=== PATIENT | male | born 1990 | race American Indian/Alaskan Native ===

== ENCOUNTER 2018-07-31 20:02 | Emergency (ER) | payer MEDICARE, MEDICAID ==
--- NOTE | 2018-07-31 21:16 | Emergency Department Report ---
Blank Doc - Documentation Documentation: This is a 27-year-old male that presents with dizziness. Patient denies any h eadaches or any other symptoms. This initial assessment/diagnostic orders/clinical plan/treatment(s) is/are subject to change based on patient's health status, clinical progression and re- assessment by fellow clinical providers in the ED. Further treatment and workup at subsequent clinical providers discretion. Patient/guardians urged not to elope from the ED as their condition may be serious if not clinically assessed and managed. Initial orders include: 1- Patient sent to [facility] for further evaluation and treatment 2- labs 3- orthostatic vitals
[2018-07-31 21:52] LABS: Basophils # (Auto) 0.1 K/mm3 (0.0-0.1); Eosinophils # (Auto) 0.1 K/mm3 (0.0-0.4); Eosinophils % (Auto) 2.2 % (0.0-4.3); Hematocrit 45.4 % (35.5-45.6); Hemoglobin 15.5 gm/dl (11.8-15.2); Lymphocytes # (Auto) 2.3 K/mm3 (1.2-5.4); Lymphocytes % (Auto) 47.6 % (13.4-35.0); Mean Corpuscular HGB Conc 34 % (32-34); Mean Corpuscular Volume 81 fl (84-94); Monocytes # (Auto) 0.4 K/mm3 (0.0-0.8); Platelet Count 288 K/mm3 (140-440); Red Blood Count 5.58 M/mm3 (3.65-5.03); Red Cell Distribution Width 13.8 % (13.2-15.2)
[2018-07-31 21:58] LABS: BUN/Creatinine Ratio 15; Blood Urea Nitrogen 9 mg/dL (9-20); Calcium 9.7 mg/dL (8.4-10.2); Hemolysis Index 10
--- NOTE | 2018-08-01 01:16 | Cat Scan Report ---
PROCEDURE: CT HEAD/BRAIN WO CON TECHNIQUE: Computerized tomography of the head was performed without contrast material. CT DOSE LENGTH PRODUCT: mGycm HISTORY: dizziness COMPARISONS: None . FINDINGS: Skull and scalp: Normal . Paranasal sinuses: Normal . Ventricles and subarachnoid spaces: Normal . Cerebrum: No evidence of hemorrhage, acute infarction or mass . Cerebellum and brainstem: No evidence of hemorrhage, acute infarction or mass . Vasculature: Normal . Other: None . ASPECTS: 10 IMPRESSION: Normal Examination . This document is electronically signed by Sagar Kraft MD., August 01 2018 02:14:41 AM ET
[2018-08-01 01:34] LABS: Free T4 (Free Thyroxine) 1.24 ng/dL (0.76-1.46)
--- NOTE | 2018-08-01 02:07 | Emergency Department Report ---
ED General Adult HPI - General Chief complaint: Dizziness Stated complaint: DIZZY Time Seen by Provider: 07/31/18 21:14 Source: patient Mode of arrival: Ambulatory Limitations: No Limitations - History of Present Illness Initial comments: Patient is a 27-year-old, male with no past medical history except hypertension presents to ED with complaint of acute onset persistent intermittent dizziness and lightheadedness with headache for the last 3 days, worse in the last 12 hours. Patient states that the symptoms are intermittent and does not remember anything that triggers it. Patient denies chest pain, nausea, vomiting, change in mentation, diaphoresis, abdominal pain, ear pain, nasal and sinus congestion, fever, chills, diarrhea, change in vision or neck pain. MD Complaint: dizziness, headache -: Sudden, days(s) (3) Location: head Radiation: non-radiation Severity scale (0 -10): 4 Quality: aching, dull Consistency: constant Improves with: none Worsens with: none Associated Symptoms: headaches. denies: confusion, chest pain, cough, diaphoresis, fever/chills, loss of appetite, malaise, nausea/vomiting, rash, shortness of breath, syncope, other Treatments Prior to Arrival: none - Related Data Previous Rx's Medication Instructions Recorded Last Taken Type Ibuprofen [Motrin] 800 mg PO Q8HR PRN #20 tablet 08/01/18 Unknown Rx Meclizine [Antivert] 25 mg PO TID PRN #30 tablet 08/01/18 Unknown Rx Allergies Allergy/AdvReac Type Severity Reaction Status Date / Time No Known Allergies Allergy Unverified 07/31/18 20:32 ED Review of Systems ROS: Stated complaint: DIZZY Other details as noted in HPI Comment: All other systems reviewed and negative Constitutional: no symptoms reported, see HPI. denies: chills, diaphoresis, fever, malaise Eyes: as per HPI. denies: eye pain, eye discharge, vision change ENT: as per HPI. denies: ear pain, throat pain, dental pain, hearing loss, epistaxis Respiratory: no symptoms reported, see HPI. denies: cough, orthopnea, shortness of breath, SOB with exertion, SOB at rest Cardiovascular: as per HPI. denies: chest pain, palpitations, dyspnea on exertion, edema, syncope, paroxysmal nocturnal dyspnea Endocrine: no symptoms reported, see HPI. denies: excessive sweating, flushing, intolerance to cold, intolerance to heat, increased hunger, increased thirst, unexplained weight gain, unexplained weight loss Gastrointestinal: as per HPI. denies: abdominal pain, nausea, vomiting, diarrhea, constipation, hematemesis, melena, hematochezia Genitourinary: as per HPI. denies: urgency, dysuria, frequency, hematuria, discharge, testicular pain, testicular mass Musculoskeletal: as per HPI. denies: back pain, joint swelling, arthralgia Skin: as per HPI. denies: rash, lesions, change in color Neurological: as per HPI, headache. denies: weakness, numbness, paresthesias, confusion, abnormal gait, vertigo Psychiatric: as per HPI. denies: auditory hallucinations, visual hallucinations, homicidal thoughts Hematological/Lymphatic: as per HPI ED Past Medical Hx - Past Medical History Hx Hypertension: Yes Additional medical history: bells palsy - Social History Smoking Status: Never Smoker Substance Use Type: None - Medications Home Medications: Home Medications Medication Instructions Recorded Confirmed Last Taken Type Ibuprofen [Motrin] 800 mg PO Q8HR PRN #20 tablet 08/01/18 Unknown Rx Meclizine [Antivert] 25 mg PO TID PRN #30 tablet 08/01/18 Unknown Rx ED Physical Exam - General Limitations: No Limitations General appearance: alert, in no apparent distress - Head Head exam: Present: atraumatic, normocephalic, normal inspection - Eye Eye exam: Present: normal appearance, PERRL, EOMI. Absent: scleral icterus, conjunctival injection, nystagmus, periorbital swelling, periorbital tenderness Pupils: Present: normal accommodation - ENT ENT exam: Present: normal exam, normal orophraynx, mucous membranes moist, TM's normal bilaterally, normal external ear exam - Neck Neck exam: Present: normal inspection, full ROM. Absent: tenderness, mening ismus, lymphadenopathy, thyromegaly - Respiratory Respiratory exam: Present: normal lung sounds bilaterally. Absent: respiratory distress, wheezes, rhonchi, stridor, chest wall tenderness, accessory muscle use, decreased breath sounds - Cardiovascular Cardiovascular Exam: Present: regular rate, normal rhythm, normal heart sounds - GI/Abdominal GI/Abdominal exam: Present: soft, normal bowel sounds. Absent: distended, guarding, rebound, hyperactive bowel sounds, hypoactive bowel sounds, organomegaly, mass, pulsatile mass - Rectal Rectal exam: Present: deferred - Extremities Exam Extremities exam: Present: normal inspection, full ROM, normal capillary refill - Back Exam Back exam: Present: normal inspection, full ROM. Absent: tenderness, CVA tenderness (R), CVA tenderness (L), muscle spasm, vertebral tenderness - Neurological Exam Neurological exam: Present: alert, oriented X3, CN II-XII intact, normal gait, reflexes normal - Psychiatric Psychiatric exam: Present: normal affect, anxious - Skin Skin exam: Present: warm, dry, intact, normal color. Absent: cyanosis, erythema, urticaria ED Course Vital Signs 07/31/18 07/31/18 20:23 21:15 Temperature 98.3 F 98.3 F Pulse Rate 85 85 Respiratory 18 18 Rate Blood Pressure 154/101 154/101 O2 Sat by Pulse 99 98 Oximetry - Reevaluation(s) Reevaluation #1: 08/01/18 02:11 Patient is alert and oriented 3 and is not in distress. Patient was treated in the ED for dizziness with meclizine. Head CT scan without contrast shows no acute intracranial abnormalities or hemorrhage. Lab test results were reviewed and are all unremarkable. On reevaluation, patient has not had any dizzy spells while in the ED especially after being treated with medication in the ED. Chuy nunez discharged home on medications and advised to follow-up with his primary care physician in 3-5 days for reevaluation or return to the ED immediately if symptoms get worse. ED Medical Decision Making - Lab Data Result diagrams: 07/31/18 21:22 07/31/18 21:22 - Radiology Data Radiology results: report reviewed, image reviewed No acute intracranial abnormalities - Medical Decision Making Patient is alert and oriented 3 and is not in distress. Patient was treated in the ED for dizziness with meclizine. Head CT scan without contrast shows no acute intracranial abnormalities or hemorrhage. Lab test results were reviewed and are all unremarkable. On reevaluation, patient has not had any dizzy spells while in the ED especially after being treated with medication in the ED. Patient discharged home on medications and advised to follow-up with his primary care physician in 3-5 days for reevaluation or return to the ED immediately if symptoms get worse. - Differential Diagnosis dizziness, headache, viral illness Critical care attestation.: If time is entered above; I have spent that time in minutes in the direct care of this critically ill patient, excluding procedure time. ED Disposition Clinical Impression: Dizzinesses Disposition: - TO HOME OR SELFCARE Is pt being admited?: No Does the pt Need Aspirin: No Condition: Stable Instructions: Dizziness (ED) Additional Instructions: Take medications as needed, drink plenty of fluids and follow up with your primary care physician in 7-10 days for reevaluation. Return to the ED immediately if symptoms get worse. Prescriptions: Meclizine [Antivert] 25 mg PO TID PRN #30 tablet PRN Reason: Vertigo Ibuprofen [Motrin] 800 mg PO Q8HR PRN #20 tablet PRN Reason: Pain , Severe (7-10) Referrals: YOKASTA DAVE MD [Primary Care Provider] - 3-5 Days Time of Disposition: 01:59 Print Language: PERSIAN
[2018-08-01 02:14] VITALS: BP 142/90
== END 2018-08-01 02:12 | disposition home or self-care (01) ==
LOC: ED 20:02
DX: R42 Dizziness and giddiness (principal); I10 Essential (primary) hypertension
CPT/HCPCS: 36415; 70450; 80048; 84439; 84443; 84484; 85025; 99284

== ENCOUNTER 2018-08-08 10:59 | Emergency (ER) | payer MEDICARE, MEDICAID ==
[2018-08-08 11:09] VITALS: BP 148/91
--- NOTE | 2018-08-08 12:23 | Emergency Department Report ---
ED General Adult HPI - General Chief complaint: Dizziness Stated complaint: DIZZY/HEAD PRESSURE Time Seen by Provider: 08/08/18 11:58 Source: patient Mode of arrival: Ambulatory Limitations: No Limitations - History of Present Illness Initial comments: Patient is a 27-year-old [place] male who is presenting with right sided headache is been present for approximately 2 weeks. Patient states this aching throbbing sensation on the right side of his head. Patient states sometimes it feels as though there is a balloon in his head that is expanding. He denies any light sensitivity and nausea vomiting fevers chills Or stiffness or sore throat this time. Patient was here approximately week ago and was given a prescription for Motrin which he states did not help his headache. - Related Data Previous Rx's Medication Instructions Recorded Last Taken Type Ibuprofen [Motrin] 800 mg PO Q8HR PRN #20 tablet 08/01/18 Unknown Rx Meclizine [Antivert] 25 mg PO TID PRN #30 tablet 08/01/18 Unknown Rx Ketorolac [Toradol] 10 mg PO Q6H PRN #12 tablet 08/08/18 Unknown Rx Meclizine [Antivert] 25 mg PO TID PRN #10 tablet 08/08/18 Unknown Rx Allergies Allergy/AdvReac Type Severity Reaction Status Date / Time No Known Allergies Allergy Verified 08/08/18 11:02 ED Review of Systems ROS: Stated complaint: DIZZY/HEAD PRESSURE Other details as noted in HPI Comment: All other systems reviewed and negative ED Past Medical Hx - Past Medical History Previous Medical History?: Yes Hx Hypertension: Yes Additional medical history: bells palsy - Surgical History Past Surgical History?: No - Social History Smoking Status: Never Smoker - Medications Home Medications: Home Medications Medication Instructions Recorded Confirmed Last Taken Type Ibuprofen [Motrin] 800 mg PO Q8HR PRN #20 tablet 08/01/18 Unknown Rx Meclizine [Antivert] 25 mg PO TID PRN #30 tablet 08/01/18 Unknown Rx Ketorolac [Toradol] 10 mg PO Q6H PRN #12 tablet 08/08/18 Unknown Rx Meclizine [Antivert] 25 mg PO TID PRN #10 tablet 08/08/18 Unknown Rx ED Physical Exam - General Limitations: No Limitations General appearance: alert, in no apparent distress - Head Head exam: Present: atraumatic, normocephalic - Eye Eye exam: Present: normal appearance - ENT ENT exam: Present: mucous membranes moist - Neck Neck exam: Present: normal inspection - Respiratory Respiratory exam: Present: normal lung sounds bilaterally. Absent: respiratory distress, wheezes, rales, rhonchi - Cardiovascular Cardiovascular Exam: Present: regular rate, normal rhythm. Absent: systolic murmur, diastolic murmur, rubs, gallop - GI/Abdominal GI/Abdominal exam: Present: soft, normal bowel sounds. Absent: distended, tenderness, guarding, rebound - Rectal Rectal exam: Present: deferred - Extremities Exam Extremities exam: Present: normal inspection - Back Exam Back exam: Present: normal inspection - Neurological Exam Neurological exam: Present: alert, oriented X3, CN II-XII intact. Absent: normal gait, motor sensory deficit - Psychiatric Psychiatric exam: Present: normal affect, normal mood - Skin Skin exam: Present: warm, dry, intact, normal color. Absent: rash ED Course Vital Signs 08/08/18 11:09 Temperature 98.3 F Pulse Rate 90 Respiratory 18 Rate Blood Pressure 148/91 O2 Sat by Pulse 98 Oximetry ED Medical Decision Making - Medical Decision Making Review of patient's chart says previous CAT scan showed no acute abdomen now only of the brain or sinusitis. Patient will be given that her meds for symptomatically relief the patient be referred to neurology. Critical care attestation.: If time is entered above; I have spent that time in minutes in the direct care of this critically ill patient, excluding procedure time. ED Disposition Clinical Impression: Dizzinesses Headache Qualifiers: Headache type: unspecified Headache chronicity pattern: acute headache Intractability: not intractable Qualified Code(s): R51 - Headache Disposition: DC- TO HOME OR SELFCARE Is pt being admited?: No Does the pt Need Aspirin: No Condition: Stable Referrals: YOKASTA DAVE MD [Primary Care Provider] - 3-5 Days MARIAJOSE CLINE MD [Referring] - 3-5 Days ARNOLD JANSEN MD [Referring] - 3-5 Days ALVA FAN MD [Referring] - 3-5 Days Time of Disposition: 12:22
== END 2018-08-08 12:36 | disposition home or self-care (01) ==
LOC: ED 10:59
DX: R51 Headache (principal); R42 Dizziness and giddiness; I10 Essential (primary) hypertension; Z86.69 Personal history of other diseases of the nervous system and sense organs